=== PATIENT | female | born 1985 | race Caucasian/White ===

== ENCOUNTER 2019-04-05 19:25 | Emergency (ER) | payer OTHER ==
[~2019-04-05] VITALS: Ht 170.2 cm; Wt 75.4 kg
[2019-04-05 19:31] VITALS: Ht 170.2 cm; Wt 75.4 kg
[2019-04-05 20:03] LABS: BASOPHIL % 0.4 % (0-2); PLATELET COUNT 248 x10^3mcL (130-400); RED CELL DISTRIBUTION WIDTH 13.4 % (11.5-14.5)
[2019-04-05 20:20] LABS: CALCIUM 8.8 mg/dL (8.5-10.1); CARBON DIOXIDE 27.2 mmol/L (21-32); CHLORIDE SERUM 106 mmol/L (98-107); CREATININE SERUM 0.8 mg/dL (0.6-1.0); GFR1 > 60 mL/min; GLUCOSE SERUM 122 mg/dL (74-106); POTASSIUM SERUM 3.3 mmol/L (3.5-5.1); SODIUM SERUM 142 mmol/L (136-145)
[2019-04-05 20:25] LABS: ALBUMIN 3.7 g/dL (3.4-5.0); ALKALINE PHOSPHATASE 76 U/L (46-116); ALT/SGPT 23 U/L (14-59); AST/SGOT 13 U/L (15-37); BILIRUBIN TOTAL 0.3 mg/dL (0.20-1.00); LIPASE 139 IU/L (73-393); TOTAL PROTEIN, SERUM 7.4 g/dL (6.4-8.2)
[2019-04-05 22:30] VITALS: BP 114/76
== END 2019-04-05 22:30 | disposition home or self-care (01) ==
LOC: ED 19:25
PROVIDERS: Emergency Medicine
DX: N20.0 Calculus of kidney (principal)
CPT/HCPCS: J1885; J2405; J7030

== ENCOUNTER 2020-09-26 16:29 | Emergency (ER) | payer OTHER ==
[~2020-09-26] VITALS: Ht 167.6 cm; Wt 79.4 kg
[2020-09-26 16:43] VITALS: BP 139/88; Ht 167.6 cm; Wt 79.4 kg
== END 2020-09-26 17:31 | disposition home or self-care (01) ==
LOC: ED 16:29
DX: S61.411A Laceration without foreign body of right hand, initial encounter (principal); Z87.442 Personal history of urinary calculi; W25.XXXA Contact with sharp glass, initial encounter; Y93.89 Activity, other specified; Y92.89 Other specified places as the place of occurrence of the external cause; Y99.8 Other external cause status
CPT/HCPCS: 90715; J2001